=== PATIENT | female | born 1980 | race Caucasian/White ===

== ENCOUNTER → 2016-08-25 | Outpatient (CLI) | payer OTHER ==
[~2016-08-25] MED LIST: DILAUDID4 MG PO; HYDROCODONE-APA1 TA2 PO
--- NOTE | 2016-08-26 21:11 | RADIOLOGY REPORT PS360 ---
DIG MAMM-SCREEN [facility]ALIE W/CAD CAD Screening COMPARISON: None, this is baseline INDICATION: There is no personal or family history of breast cancer TECHNIQUE: Standard CC and MLO images were obtained. R2 CAD reviewed. FINDINGS: Moderate diffuse fibro glandular densities are seen throughout both breasts. There is no suspicious lesion in either breast and there are no suspicious microcalcifications. There is a small round benign-appearing density near the axillary tail of the right breast. This likely is a small node however since there are no previous studies for comparison recommend patient have a six-month follow-up right mammogram to sure interval stability of this benign-appearing lesion. There are no suspicious microcalcifications. IMPRESSION: Fibrofatty parenchyma with no suspicious lesion seen however view of the asymmetric density right breast recommend patient have a six-month follow-up and grandmother right breast to assure interval stability BI-RADS CATEGORY: 3_Probably Benign-Short Term F/U RECOMMENDED FOLLOWUP: 6M 6MONTH FOLLOW-UP (A letter has been sent to the patient regarding results of the study.)
== END ==
LOC: RAD 09:25
DX: Z12.31 Encounter for screening mammogram for malignant neoplasm of breast (principal)
CPT/HCPCS: G0202